=== PATIENT | male | born 1955 | race American Indian/Alaskan Native ===

== ENCOUNTER 2016-09-28 08:05 | Emergency (ER) | payer BC ==
[2016-09-28] MEDS ORDERED: XYLOCAINE 1%/ EPI 1:100,000 INFILTRATI ONE (11:44)
--- NOTE | 2016-09-28 11:46 | Emergency Department Report ---
- General Chief Complaint: Wound/Laceration Stated Complaint: HEAD INJURY/FALL Source: patient Mode of arrival: Ambulatory Limitations: No Limitations - History of Present Illness Initial Comments: 61-year-old -Greek male with a past medical history of hypertension diabetes comes in for a laceration to his forehead. Patient reports that he tripped and fell last night around 2330 and had a headache at that time denied any LOC denies any vision change and now comes in because it needs to be evaluated. Patient currently denies any headache denies any change of vision denies any active bleeding. Patient reports he has taken all his medication as prescribed no nausea no vomiting no headache at this time - Related Data Home Medications Medication Instructions Recorded Confirmed Last Taken Amlodipine Besylate [Norvasc] 10 mg PO DAILY 08/13/13 08/13/13 08/12/13 08:00 Levothyroxine [Synthroid] 200 mcg PO DAILY 08/13/13 08/13/13 08/12/13 08:00 Previous Rx's Medication Instructions Recorded Last Taken Type Insulin Glargine,Hum.rec.anlog 40 unit SQ QHS 30 Days 08/16/13 Unknown Rx [Lantus Solostar] Insulin Glulisine [Apidra Solostar] 15 unit SQ AC 30 Days 08/16/13 Unknown Rx Allergies Allergy/AdvReac Type Severity Reaction Status Date / Time No Known Allergies Allergy Verified 09/28/16 08:49 ED Review of Systems ROS: Stated complaint: HEAD INJURY/FALL Other details as noted in HPI Constitutional: denies: chills, fever Eyes: denies: eye pain, eye discharge, vision change ENT: denies: ear pain, throat pain Respiratory: denies: cough, shortness of breath, wheezing Cardiovascular: denies: chest pain, palpitations Gastrointestinal: denies: abdominal pain, nausea, diarrhea Skin: as per HPI Neurological: denies: headache, weakness, paresthesias Psychiatric: denies: anxiety, depression ED Past Medical Hx - Past Medical History Hx Hypertension: Yes Hx Heart Attack/AMI: No Hx Congestive Heart Failure: No Hx Diabetes: Yes (recent dx) Hx Deep Vein Thrombosis: No Hx Pulmonary Embolism: No Hx GERD: No Hx Liver Disease: No Hx Renal Disease: No Hx Sickle Cell Disease: No Hx Arthritis: No Hx Headaches / Migraines: No Hx Seizures: No Hx Kidney Stones: No Hx Asthma: No Hx COPD: No Hx Tuberculosis: No Hx Dementia: No Hx HIV: No Additional medical history: hypothyroid - Surgical History Hx Coronary Stent: No Hx Open Heart Surgery: No Hx Pacemaker: No Hx Internal Defibrillator: No Hx Cholecystectomy: No Hx Appendectomy: No Hx Breast Surgery: No - Social History Smoking Status: Never Smoker Substance Use Type: Alcohol - Medications Home Medications: Home Medications Medication Instructions Recorded Confirmed Last Taken Type Amlodipine Besylate [Norvasc] 10 mg PO DAILY 08/13/13 08/13/13 08/12/13 08:00 History Levothyroxine [Synthroid] 200 mcg PO DAILY 08/13/13 08/13/13 08/12/13 08:00 History Insulin Glargine,Hum.rec.anlog 40 unit SQ QHS 30 Days 08/16/13 Unknown Rx [Lantus Solostar] Insulin Glulisine [Apidra Solostar] 15 unit SQ AC 30 Days 08/16/13 Unknown Rx ED Physical Exam - General Limitations: No Limitations General appearance: alert, in no apparent distress - Head Head exam: Present: atraumatic, normocephalic - Eye Eye exam: Present: normal appearance, PERRL, EOMI - ENT ENT exam: Present: normal exam, mucous membranes moist - Neck Neck exam: Present: normal inspection, full ROM - Cardiovascular Cardiovascular Exam: Present: regular rate, normal rhythm, normal heart sounds - Expanded Neurological Exam Expanded Speech: Present: fluid speech Cranial nerves: EOM's Intact: Normal, Gag Reflex: Normal, Nystagmus: Normal Cerebellar function: Finger to Nose: Normal, Romberg: Normal ED Course Vital Signs 09/28/16 08:52 Temperature 97.8 F Pulse Rate 87 Respiratory 17 Rate Blood Pressure 144/84 O2 Sat by Pulse 98 Oximetry - Laceration /Wound Repair Left Face Wound Location: face Wound Length (cm): 1 Wound's Depth, Shape: into muscle Wound Explored: clean Betadine Prep?: Yes Anesthesia: Lidocaine w/ Epi Wound Debrided: minimal Wound Repaired With: sutures Suture Size/Type: 6:0 Number of Sutures: 4 Progress: Patient tolerated procedure well. ED Medical Decision Making - Medical Decision Making Patient reevaluated by this provider in fast track. Discussed with patient that we'll need to do a laceration repair on his forehead. Patient verbalized understanding. She denies any pain at this time Critical care attestation.: If time is entered above; I have spent that time in minutes in the direct care of this critically ill patient, excluding procedure time. ED Disposition Clinical Impression: Laceration of forehead without complication Qualifiers: Encounter type: initial encounter Qualified Code(s): S01.81XA - Laceration without foreign body of other part of head, initial encounter Disposition: DISCHARGED TO HOME OR SELFCARE Is pt being admited?: No Does the pt Need Aspirin: No Condition: Stable Instructions: Suture Care (ED), Laceration (ED) Additional Instructions: Keep area clean and dry. Return to the emergency room for suture removal in 3- 5 days. Referrals: ANAIS WEAVER PA [Primary Care Provider] - 3-5 Days Forms: Work/School Release Form(ED)
[2016-09-28 12:47] VITALS: BP 140/81
== END 2016-09-28 12:46 | disposition home or self-care (01) ==
LOC: ED 08:05
DX: S01.81XA Laceration without foreign body of other part of head, initial encounter (principal); I10 Essential (primary) hypertension; E11.9 Type 2 diabetes mellitus without complications; E03.9 Hypothyroidism, unspecified; Z79.4 Long term (current) use of insulin; W01.0XXA Fall on same level from slipping, tripping and stumbling without subsequent striking against object, initial encounter; Y93.89 Activity, other specified; Y99.8 Other external cause status; Y92.89 Other specified places as the place of occurrence of the external cause

== ENCOUNTER 2016-10-02 07:35 | Emergency (ER) | payer BC ==
[2016-10-02 08:10] VITALS: BP 158/96
--- NOTE | 2016-10-02 09:32 | Emergency Department Report ---
Suture/Staple Removal - [facility] Chief Complaint: Laceration/Recheck/Suture Stated Complaint: SUTURE REMOVAL Time Seen by Provider: 10/02/16 09:09 When Sutures or Yoel Placed: 4 days ago Wound Location: left forehead ED Review of Systems ROS: Stated complaint: SUTURE REMOVAL Other details as noted in HPI Comment: All other systems reviewed and negative Constitutional: no symptoms reported Eyes: denies: eye pain Respiratory: no symptoms reported Cardiovascular: denies: chest pain Gastrointestinal: denies: abdominal pain Musculoskeletal: denies: back pain Skin: other (healed laceration) Neurological: denies: headache Psychiatric: denies: anxiety ED Past Medical Hx - Past Medical History Hx Hypertension: Yes Hx Heart Attack/AMI: No Hx Congestive Heart Failure: No Hx Diabetes: Yes (recent dx) Hx Deep Vein Thrombosis: No Hx Pulmonary Embolism: No Hx GERD: No Hx Liver Disease: No Hx Renal Disease: No Hx Sickle Cell Disease: No Hx Arthritis: No Hx Headaches / Migraines: No Hx Seizures: No Hx Kidney Stones: No Hx Asthma: No Hx COPD: No Hx Tuberculosis: No Hx Dementia: No Hx HIV: No Additional medical history: hypothyroid - Surgical History Hx Coronary Stent: No Hx Open Heart Surgery: No Hx Pacemaker: No Hx Internal Defibrillator: No Hx Cholecystectomy: No Hx Appendectomy: Yes Hx Breast Surgery: No Additional Surgical History: LEFT EAR SURGERY X 2 - Social History Smoking Status: Never Smoker Substance Use Type: Alcohol - Medications Home Medications: Home Medications Medication Instructions Recorded Confirmed Last Taken Type Amlodipine Besylate [Norvasc] 10 mg PO DAILY 08/13/13 08/13/13 08/12/13 08:00 History Levothyroxine [Synthroid] 200 mcg PO DAILY 08/13/13 08/13/13 08/12/13 08:00 History Insulin Glargine,Hum.rec.anlog 40 unit SQ QHS 30 Days 08/16/13 Unknown Rx [Lantus Solostar] Insulin Glulisine [Apidra Solostar] 15 unit SQ AC 30 Days 08/16/13 Unknown Rx Suture Removal Exam - Exam General: Vital signs noted. No distress. Alert and acting appropriately. Wound: No Pathologic Erythema, No Tenderness, No Drainage, No Pus, No Wound Dehiscence Other Systems: All other systems reviewed and are unremarkable. healed laceration on the left forehead, 4 sutures were removed ED Course Vital Signs 10/02/16 08:08 Temperature 97.8 F Pulse Rate 86 Respiratory 17 Rate Blood Pressure 158/96 O2 Sat by Pulse 100 Oximetry ED Recheck MDM - Differential Diagnosis Wound Recheck, Suture/Staple Removal, Wound Dehiscence - Medical Decision Making there was no wound dehiscence, no drainage, no erythema, no edema. there area was about 3 cm, 4 nylon sutures were removed. Critical care attestation.: If time is entered above; I have spent that time in minutes in the direct care of this critically ill patient, excluding procedure time. ED Disposition Clinical Impression: Visit for suture removal Disposition: DISCHARGED TO HOME OR SELFCARE Is pt being admited?: No Does the pt Need Aspirin: No Condition: Good Instructions: Suture Removal (ED) Referrals: PRIMARY CARE, [Primary Care Provider] - 3-5 Days Time of Disposition: 09:29
== END 2016-10-02 09:44 | disposition home or self-care (01) ==
LOC: ED 07:35
DX: S01.81XD Laceration without foreign body of other part of head, subsequent encounter (principal); I10 Essential (primary) hypertension; E11.9 Type 2 diabetes mellitus without complications; E03.9 Hypothyroidism, unspecified; Z90.49 Acquired absence of other specified parts of digestive tract; Z79.4 Long term (current) use of insulin

== ENCOUNTER 2017-02-08 07:16 | Emergency (ER) | payer BC ==
[2017-02-08 07:23] VITALS: BP 148/98
--- NOTE | 2017-02-08 08:23 | Emergency Department Report ---
HPI - General Chief Complaint: Extremity Injury, Upper Time Seen by Provider: 02/08/17 08:02 - HPI HPI: This is a 61-year-old male presents to ED complaining of right wrist pain that started Tuesday afternoon and has gotten worse today. Patient states since Tuesday remembers putting together a dresser. Patient describes pain as throbbing in nature, nonradiating, about 4-5/10 intensity. He denies any trauma or injury to the head and or wrist. He denies fevers/chills/nausea/vomiting/abdominal pain/chest pain/dizziness/ headache or any other problems ED Past Medical Hx - Past Medical History Hx Hypertension: Yes Hx Heart Attack/AMI: No Hx Congestive Heart Failure: No Hx Diabetes: Yes (recent dx) Hx Deep Vein Thrombosis: No Hx Pulmonary Embolism: No Hx GERD: No Hx Liver Disease: No Hx Renal Disease: No Hx Sickle Cell Disease: No Hx Arthritis: No Hx Headaches / Migraines: No Hx Seizures: No Hx Kidney Stones: No Hx Asthma: No Hx COPD: No Hx Tuberculosis: No Hx Dementia: No Hx HIV: No Additional medical history: hypothyroid - Surgical History Hx Coronary Stent: No Hx Open Heart Surgery: No Hx Pacemaker: No Hx Internal Defibrillator: No Hx Cholecystectomy: No Hx Appendectomy: Yes Hx Breast Surgery: No Additional Surgical History: LEFT EAR SURGERY X 2 - Social History Smoking Status: Never Smoker Substance Use Type: None - Medications Home Medications: Home Medications Medication Instructions Recorded Confirmed Last Taken Type Amlodipine Besylate [Norvasc] 10 mg PO DAILY 08/13/13 08/13/13 08/12/13 08:00 History Levothyroxine [Synthroid] 200 mcg PO DAILY 08/13/13 08/13/13 08/12/13 08:00 History Insulin Glargine,Hum.rec.anlog 40 unit SQ QHS 30 Days 08/16/13 Unknown Rx [Lantus Solostar] Insulin Glulisine [Apidra Solostar] 15 unit SQ AC 30 Days 08/16/13 Unknown Rx Diclofenac Sodium 50 mg PO BID #30 tablet. 02/08/17 Unknown Rx methOCARBAMOL [Robaxin TAB] 500 mg PO BID #20 tab 02/08/17 Unknown Rx ED Review of Systems ROS: Stated complaint: RT WRIST PAIN Other details as noted in HPI Constitutional: denies: chills, fever Eyes: denies: eye pain, eye discharge, vision change ENT: denies: ear pain, throat pain Respiratory: denies: cough, shortness of breath, wheezing Cardiovascular: denies: chest pain, palpitations Endocrine: no symptoms reported Gastrointestinal: denies: abdominal pain, nausea, diarrhea Genitourinary: denies: urgency, dysuria Musculoskeletal: arthralgia, myalgia. denies: back pain, joint swelling Skin: denies: rash, lesions Neurological: denies: headache, weakness, numbness, paresthesias Psychiatric: denies: anxiety, depression Hematological/Lymphatic: denies: easy bleeding, easy bruising Physical Exam - Physical Exam Vital Signs: Vital Signs 02/08/17 07:22 Temperature 98.6 F Pulse Rate 88 Respiratory 18 Rate Blood Pressure 148/98 [Left] O2 Sat by Pulse 98 Oximetry Physical Exam: GENERAL: Alert and oriented x3, no apparent distress, Normal Gait, atraumatic. HEAD: Head is normocephalic and a-traumatic. NECK: Supple. Non edematous, No carotid bruits. No lymphadenopathy or thyromegaly. No C-spine tenderness LUNGS: Symetrical with respiration, No wheezing, no rales or crackles, CTAB. HEART: S1, S2 present, regular rate and rhythm without murmur, no rubs, no gallops. Non tender to palpation EXTREMITIES/MUSCULOSKELETAL: No cyanosis, clubbing, rash, lesions or edema. Full ROM bilaterally. radial Pulses 2+ bilaterally. LE and UE 5+ strength bilaterally wrist joint intact bilaterally. Right wrist mild tenderness to palpation. No ecchymosis, no active bleeding, no erythema, mild edema NEUROLOGIC: The patient is cooperative with no focal neurologic deficits. Cranial nerves II through XII are grossly intact. Normal speech. SKIN: Warm and dry, No lesions, No ulceration or induration present. ED Course Vital Signs 02/08/17 07:22 Temperature 98.6 F Pulse Rate 88 Respiratory 18 Rate Blood Pressure 148/98 [Left] O2 Sat by Pulse 98 Oximetry ED Medical Decision Making - Medical Decision Making 61-year-old male presents with right wrist arthralgia ED course: Patient received Motrin in the ED Hand x-ray: Normal no acute fractures or dislocation impression show osteoarthritis. Discussed the patient of these x-ray RESULTS Discussed rest of the right wrist Discussed with follow-up with primary care physician. Discussed worsening symptoms return to ED. Vital signs are normal patient is in no acute distress Critical care attestation.: If time is entered above; I have spent that time in minutes in the direct care of this critically ill patient, excluding procedure time. ED Disposition Clinical Impression: Arthralgia of wrist, right Osteoarthritis Qualifiers: Osteoarthritis location: wrist Osteoarthritis type: unspecified Laterality: right Qualified Code(s): M19.031 - Primary osteoarthritis, right wrist Disposition: TO HOME OR SELFCARE Is pt being admited?: No Does the pt Need Aspirin: No Condition: Stable Instructions: Osteoarthritis (ED), Arthralgia (ED) Prescriptions: Diclofenac Sodium 50 mg PO BID #30 tablet. methOCARBAMOL [Robaxin TAB] 500 mg PO BID #20 tab Referrals: PRIMARY CARE, [Primary Care Provider] - 3-5 Days [facility] [Outside] - 3-5 Days [facility] [Outside] - 3-5 Days Forms: Work/School Release Form(ED) Time of Disposition: 09:00
[2017-02-08] MEDS ORDERED: MOTRIN PO ONE (08:32)
--- NOTE | 2017-02-08 08:33 | XRay Report ---
RIGHT WRIST, 4 VIEWS: History: wrist pain, injury. Normal bone mineralization. Mild osteoarthritic changes are identified. No evidence for fracture, dislocation or ligamentous injury. The soft tissues are unremarkable. IMPRESSION: Mild osteoarthritic changes. No acute process.
== END 2017-02-08 09:18 | disposition home or self-care (01) ==
LOC: ED 07:16
DX: M19.031 Primary osteoarthritis, right wrist (principal); I10 Essential (primary) hypertension; E11.9 Type 2 diabetes mellitus without complications; E03.9 Hypothyroidism, unspecified; Z79.4 Long term (current) use of insulin

== ENCOUNTER 2020-03-14 17:11 | Emergency (ER) | payer SELFPAY ==
[2020-03-14 18:19] LABS: Basophils # (Auto) 0.1 K/mm3 (0.0-0.1); Basophils % (Auto) 0.9 % (0.0-1.8); Eosinophils # (Auto) 0.2 K/mm3 (0.0-0.4); Eosinophils % (Auto) 3.1 % (0.0-4.3); Hematocrit 39.8 % (35.5-45.6); Hemoglobin 13.5 gm/dl (11.8-15.2); Lymphocytes # (Auto) 1.2 K/mm3 (1.2-5.4); Mean Corpuscular HGB Conc 34 % (32-34); Mean Corpuscular Volume 87 fl (84-94); Monocytes # (Auto) 0.3 K/mm3 (0.0-0.8); Platelet Count 312 K/mm3 (140-440); Red Blood Count 4.58 M/mm3 (3.65-5.03); Red Cell Distribution Width 14.7 % (13.2-15.2)
[2020-03-14 18:42] LABS: Albumin 3.4 g/dL (3.9-5); Calcium 8.9 mg/dL (8.4-10.2)
[2020-03-14] MEDS ORDERED: SODIUM CHLORIDE 0.9% 1000 ML 1,000 ML IV ONE (20:45)
[2020-03-14] MEDS ORDERED: INSULIN REGULAR, HUMAN 100 UNIT/ML 3ML VIAL IV ONE ×2 (20:45→22:33)
[2020-03-14] MEDS: SODIUM CHLORIDE 0.9% 500 ML 500 ML IV ONE (21:14)
--- NOTE | 2020-03-14 22:13 | Emergency Department Report ---
ED General Adult HPI - General Chief complaint: Hyperglycemia Stated complaint: MUSCLE SPASM Time Seen by Provider: 03/14/20 20:44 Source: patient Mode of arrival: Ambulatory Limitations: No Limitations - History of Present Illness Initial comments: Patient is a 64-year-old F Syrian male with a past medical history of end- stage renal disease who is on peritoneal dialysis as well as diabetes who is presenting with right upper arm spasm. States his right arm gets tight sharp spasms periodically throughout the last several days. He denies any trauma chest pain shortness of breath fevers chills nausea vomiting. Patient states he saw his kidney doctor today and his blood glucose read high. He was urged to come to the hospital to have this evaluated. Patient has been out of his insulin for the last month. His doctors are trying to work on his situation to be able to get him his medications and he believes that his new insurance will kick in by March 19 which is in 4 days - Related Data Home Medications Medication Instructions Recorded Confirmed Last Taken Amlodipine Besylate [Norvasc] 10 mg PO DAILY 08/13/13 08/13/13 08/12/13 08:00 Levothyroxine (Nf) [Synthroid (Nf)] 200 mcg PO DAILY 08/13/13 08/13/13 08/12/13 08:00 Previous Rx's Medication Instructions Recorded Last Taken Type Insulin Glargine,Hum.rec.anlog 40 unit SQ QHS 30 Days ml 08/16/13 Unknown Rx [Lantus Solostar] Insulin Glulisine [Apidra Solostar] 15 unit SQ AC 30 Days ml 08/16/13 Unknown Rx Colchicine 0.6 mg PO DAILY #11 capsule 12/20/18 Unknown Rx Ibuprofen [Motrin] 800 mg PO Q8HR PRN #30 tablet 12/20/18 Unknown Rx predniSONE [Deltasone] 20 mg PO DAILY #5 tablet 12/20/18 Unknown Rx glipiZIDE [Glucotrol] 10 mg PO QDAY #10 tablet 03/15/20 Unknown Rx Allergies Allergy/AdvReac Type Severity Reaction Status Date / Time No Known Allergies Allergy Verified 12/20/18 07:48 ED Review of Systems ROS: Stated complaint: MUSCLE SPASM Other details as noted in HPI Comment: All other systems reviewed and negative ED Past Medical Hx - Past Medical History Previous Medical History?: Yes Hx Hypertension: Yes Hx Heart Attack/AMI: No Hx Congestive Heart Failure: No Hx Diabetes: Yes Hx Deep Vein Thrombosis: No Hx Pulmonary Embolism: No Hx GERD: No Hx Liver Disease: No Hx Renal Disease: Yes Hx Sickle Cell Disease: No Hx Arthritis: No Hx Headaches / Migraines: No Hx Seizures: No Hx Kidney Stones: No Hx Asthma: No Hx COPD: No Hx Tuberculosis: No Hx Dementia: No Hx HIV: No Additional medical history: hypothyroid - Surgical History Past Surgical History?: Yes Hx Coronary Stent: No Hx Open Heart Surgery: No Hx Pacemaker: No Hx Internal Defibrillator: No Hx Cholecystectomy: No Hx Appendectomy: Yes Hx Breast Surgery: No Additional Surgical History: LEFT EAR SURGERY X 2 - Social History Smoking Status: Never Smoker Substance Use Type: Alcohol - Medications Home Medications: Home Medications Medication Instructions Recorded Confirmed Last Taken Type Amlodipine Besylate [Norvasc] 10 mg PO DAILY 08/13/13 08/13/13 08/12/13 08:00 History Levothyroxine (Nf) [Synthroid (Nf)] 200 mcg PO DAILY 08/13/13 08/13/13 08/12/13 08:00 History Insulin Glargine,Hum.rec.anlog 40 unit SQ QHS 30 Days ml 08/16/13 Unknown Rx [Lantus Solostar] Insulin Glulisine [Apidra Solostar] 15 unit SQ AC 30 Days ml 08/16/13 Unknown Rx Colchicine 0.6 mg PO DAILY #11 capsule 12/20/18 Unknown Rx Ibuprofen [Motrin] 800 mg PO Q8HR PRN #30 tablet 12/20/18 Unknown Rx predniSONE [Deltasone] 20 mg PO DAILY #5 tablet 12/20/18 Unknown Rx glipiZIDE [Glucotrol] 10 mg PO QDAY #10 tablet 03/15/20 Unknown Rx ED Physical Exam - General Limitations: No Limitations General appearance: alert, in no apparent distress - Head Head exam: Present: atraumatic, normocephalic - Eye Eye exam: Present: normal appearance - ENT ENT exam: Present: mucous membranes moist - Neck Neck exam: Present: normal inspection - Respiratory Respiratory exam: Present: normal lung sounds bilaterally. Absent: respiratory distress, wheezes, rales, rhonchi - Cardiovascular Cardiovascular Exam: Present: regular rate, normal rhythm. Absent: systolic murmur, diastolic murmur, rubs, gallop - GI/Abdominal GI/Abdominal exam: Present: soft, normal bowel sounds. Absent: distended, tenderness, guarding - Rectal Rectal exam: Present: deferred - Extremities Exam Extremities exam: Present: normal inspection - Back Exam Back exam: Present: normal inspection - Neurological Exam Neurological exam: Present: alert, oriented X3 - Psychiatric Psychiatric exam: Present: normal affect, normal mood - Skin Skin exam: Present: warm, dry, intact, normal color. Absent: rash ED Course Vital Signs 03/14/20 03/14/20 03/14/20 17:21 21:17 21:32 Temperature 98.2 F Pulse Rate 78 71 71 Respiratory 20 16 Rate Blood Pressure 159/97 Blood Pressure 140/84 [Left] O2 Sat by Pulse 98 99 Oximetry 03/14/20 23:41 Temperature Pulse Rate 82 Respiratory 18 Rate Blood Pressure Blood Pressure 152/80 [Left] O2 Sat by Pulse 98 Oximetry ED Medical Decision Making - Lab Data Result diagrams: 03/14/20 17:41 03/14/20 17:41 Lab Results 03/14/20 03/14/20 03/14/20 Range/Units 17:37 17:41 17:41 WBC 7.8 (4.5-11.0) K/mm3 RBC 4.58 (3.65-5.03) M/mm3 Hgb 13.5 (11.8-15.2) gm/dl Hct 39.8 (35.5-45.6) % MCV 87 (84-94) fl MCH 29 (28-32) pg MCHC 34 (32-34) % RDW 14.7 (13.2-15.2) % Plt Count 312 (140-440) K/mm3 Lymph % (Auto) 15.0 (13.4-35.0) % [place] % (Auto) 4.0 (0.0-7.3) % Eos % (Auto) 3.1 (0.0-4.3) % Baso % (Auto) 0.9 (0.0-1.8) % Lymph # 1.2 (1.2-5.4) K/mm3 [place] # 0.3 (0.0-0.8) K/mm3 Eos # 0.2 (0.0-0.4) K/mm3 Baso # 0.1 (0.0-0.1) K/mm3 Seg Neutrophils % 77.0 H (40.0-70.0) % Seg Neutrophils # 6.0 (1.8-7.7) K/mm3 VBG pH (7.320-7.420) Sodium 127 L (137-145) mmol/L Potassium 4.0 (3.6-5.0) mmol/L Chloride 90.0 L (98-107) mmol/L Carbon Dioxide 20 L (22-30) mmol/L Anion Gap 21 mmol/L BUN 48 H (9-20) mg/dL Creatinine 7.7 H (0.8-1.3) mg/dL Estimated GFR 9 ml/min BUN/Creatinine Ratio 6 % Glucose 888 H* (75-100) mg/dL POC Glucose > 500 H (70-105) Calcium 8.9 (8.4-10.2) mg/dL Magnesium 1.70 (1.7-2.3) mg/dL Total Bilirubin 0.50 (0.1-1.2) mg/dL AST 23 (5-40) units/L ALT 20 (7-56) units/L Alkaline Phosphatase 116 (35-129) units/L Total Creatine Kinase 883 H (55-170) units/L Total Protein 5.8 L (6.3-8.2) g/dL Albumin 3.4 L (3.9-5) g/dL Albumin/Globulin Ratio 1.4 % 03/14/20 03/14/20 03/15/20 Range/Units 17:41 22:33 00:00 WBC (4.5-11.0) K/mm3 RBC (3.65-5.03) M/mm3 Hgb (11.8-15.2) gm/dl Hct (35.5-45.6) % MCV (84-94) fl MCH (28-32) pg MCHC (32-34) % RDW (13.2-15.2) % Plt Count (140-440) K/mm3 Lymph % (Auto) (13.4-35.0) % [place] % (Auto) (0.0-7.3) % Eos % (Auto) (0.0-4.3) % Baso % (Auto) (0.0-1.8) % Lymph # (1.2-5.4) K/mm3 [place] # (0.0-0.8) K/mm3 Eos # (0.0-0.4) K/mm3 Baso # (0.0-0.1) K/mm3 Seg Neutrophils % (40.0-70.0) % Seg Neutrophils # (1.8-7.7) K/mm3 VBG pH 7.368 (7.320-7.420) Sodium (137-145) mmol/L Potassium (3.6-5.0) mmol/L Chloride (98-107) mmol/L Carbon Dioxide (22-30) mmol/L Anion Gap mmol/L BUN (9-20) mg/dL Creatinine (0.8-1.3) mg/dL Estimated GFR ml/min BUN/Creatinine Ratio % Glucose (75-100) mg/dL POC Glucose > 500 H 359 H (70-105) Calcium (8.4-10.2) mg/dL Magnesium (1.7-2.3) mg/dL Total Bilirubin (0.1-1.2) mg/dL AST (5-40) units/L ALT (7-56) units/L Alkaline Phosphatase (35-129) units/L Total Creatine Kinase (55-170) units/L Total Protein (6.3-8.2) g/dL Albumin (3.9-5) g/dL Albumin/Globulin Ratio % - Medical Decision Making Patient's laboratory studies show that he does have hyperglycemia but does not show evidence of being acidotic. Patient was hydrated and given insulin which did start to drop his blood glucose. Again patient is not in DKA will be stable to discharge home. Patient physicians are attempting to get him his insulin. As a bridge the patient will be started on glipizide and he is stable for discharge Critical care attestation.: If time is entered above; I have spent that time in minutes in the direct care of this critically ill patient, excluding procedure time. ED Disposition Clinical Impression: Hyperglycemia, Medical non-compliance, Muscle spasm Disposition: DC-01 TO HOME OR SELFCARE Is pt being admited?: No Does the pt Need Aspirin: No Condition: Stable Instructions: Diabetic Hyperglycemia (ED) Prescriptions: glipiZIDE [Glucotrol] 10 mg PO QDAY #10 tablet Referrals: PRIMARY CARE, [Primary Care Provider] - 3-5 Days Time of Disposition: 00:06 - Assessment Assessment Interval: Baseline - Level of Consciousness 1a. Level of Consciousness: alert/keenly responsive - LOC Questions 1b. LOC Questions: answers both correctly - LOC Command 1c. LOC Commands: performs tasks correctly - Best Gaze 2. Best Gaze: normal - Visual 3. Visual: no visual loss - Facial Palsy 4. Facial Palsy: normal symmetrical movement - Motor Arm 5a. Motor Arm Left: no drift 5b. Motor Arm Right: no drift - Motor Leg 6a. Motor Leg Left: no drift 6b. Motor Leg Right: no drift - Limb Ataxia 7. Limb Ataxia: absent - Sensory 8. Sensory: normal - Best Language 9. Best Language: no aphasia - Dysarthria 10. Dysarthria: normal - Extinction and Inattention 11. Extinction/Inattention: no abnormality - Scoring Total Score: 0 Stroke Severity: No Stroke Symptoms
[2020-03-14] MEDS ORDERED: SODIUM CHLORIDE 0.9% 500 ML 500 ML IV ONE (22:33)
[2020-03-14 23:49] VITALS: BP 152/80
== END 2020-03-15 00:15 | disposition home or self-care (01) ==
LOC: ED 17:11
DX: E11.65 Type 2 diabetes mellitus with hyperglycemia (principal); I10 Essential (primary) hypertension; E05.00 Thyrotoxicosis with diffuse goiter without thyrotoxic crisis or storm; Z79.899 Other long term (current) drug therapy; Z79.4 Long term (current) use of insulin; Z98.890 Other specified postprocedural states
CPT/HCPCS: 36415; 80053; 82550; 82805; 82962; 83735; 85025; 96361; 96374; 96375; 99283; J7030; J7040; J1815